=== PATIENT | male | born 1945 | race Hispanic/Latino ===

== ENCOUNTER 2020-06-27 05:56 | Day surgery (SDC) | payer OTHER ==
[2020-06-23 15:17] LABS: APPEARANCE,URINE Cloudy (CLEAR); BILIRUBIN,URINE Moderate (NEGATIVE); COLOR,URINE Dark Yellow (YELLOW); GLUCOSE, URINE (UA) Negative (NEGATIVE); KETONES,URINE Trace mg/dL (NEGATIVE); LEUKOCYTE ESTERASE ,URINE Small (NEGATIVE); NITRATE,URINE Negative (NEGATIVE); OCCULT BLOOD,URINE Negative (NEGATIVE); PROTEIN,URINE 300 mg/dL (NEGATIVE)
[2020-06-23 15:18] LABS: BASOPHILS % (AUTO) 0.9 % (0.0-5.0); EOSINOPHILS % (AUTO) 4.7 % (0.0-8.0); HEMATOCRIT 33.2 % (42-54); LYMPHOCYTES % (AUTO) 31.7 % (21.0-51.0); MEAN CORPUSCULAR HEMOGLOBIN 30.7 pg (27.0-33.0); MEAN CORPUSCULAR HGB CONC 32.5 g/dL (32.0-36.0); MEAN CORPUSCULAR VOLUME 94.3 fL (79-99); NEUTROPHILS % (AUTO) 53.4 % (40.0-77.0); PLATELET COUNT (AUTO) 291 K/uL (130-400); RED BLOOD CELL COUNT(AUTO) 3.52 MIL/uL (4.50-6.20); WHITE BLOOD COUNT (AUTO) 6.4 K/uL (4.8-10.8)
[2020-06-23 15:28] LABS: BACTERIA,URINE Few /HPF (None Seen); MUCUS,URINE Few LPF (None Seen); SQUAMOUS EPITHELIAL CELL,UR Few /HPF (0-2)
[2020-06-23 15:29] LABS: AMORPHOUS SEDIMENT,UR Moderate /LPF (None Seen)
[2020-06-23 15:30] LABS: CREATININE 1.1 mg/dL (0.5-1.5); POTASSIUM 5.8 mmol/L (3.5-5.1)
[2020-06-23 15:33] LABS: PROTHROMBIN TIME 10.9 SEC (9.6-11.6)
[2020-06-23 15:34] LABS: PARTIAL THROMBOPLASTIN TIME 28.5 SEC (26.3-35.5)
[2020-06-24 11:05] VITALS: BP 114/54
[~2020-06-27] VITALS: Ht 162.6 cm; Wt 60.3 kg
[2020-06-27] VITALS (11 sets, daily range): BP systolic 103–156; BP diastolic 44–63
[~2020-06-27 05:56] MED LIST: ASPI-556 PO; ATOR10 PO; CARV6.25 PO; CLOP75TA32 PO; METF-446 PO; SACU1TAB PO
[2020-06-27] MEDS ORDERED: SODIUM CHLORIDE 0.9% 1000ML 1,000 ML IV ONE (06:44)
[2020-06-27] MEDS ORDERED: HEPARIN SODIUM 1000UNIT/ML 10ML VIAL ONE (07:13)
[2020-06-27] MEDS ORDERED: IOHEXOL 350 MG/ML 100ML INFUS..BTL IV ONE ×2 (07:13→07:17)
[2020-06-27] MEDS ORDERED: NITROGLYCERIN 2 MG/VIAL VIAL IV ONE (07:13)
[2020-06-27] MEDS ORDERED: SODIUM BICARB 50MEQ 50ML VIAL 0 ML ONE (07:13)
[2020-06-27] MEDS ORDERED: FENTANYL CITRATE PF 50 MCG/1 ML 2ML VIAL ONE (07:14)
[2020-06-27] MEDS ORDERED: LIDOCAINE HCL 2% 20ML ONE (07:14)
[2020-06-27] MEDS ORDERED: MIDAZOLAM HCL 1 MG/ML 2ML VIAL ONE (07:14)
[2020-06-27] MEDS ORDERED: GLUCAGON 1MG KIT 1 MG ML IM PRN (10:45)
[2020-06-27] MEDS ORDERED: DEXTROSE 50%-WATER 50 ML DISP.SYRIN IV PRN (10:45)
[2020-06-27] MEDS ORDERED: SODIUM CHLORIDE 0.9% 1000ML 1,000 ML IV SCH (10:45)
== END 2020-06-27 15:50 | disposition home or self-care (01) ==
LOC: DAH 05:56
PROVIDERS: ATTEND Internal Medicine Cardiovascular Disease
DX: I34.0 Nonrheumatic mitral (valve) insufficiency (principal); I44.7 Left bundle-branch block, unspecified; E11.9 Type 2 diabetes mellitus without complications; I10 Essential (primary) hypertension; E78.5 Hyperlipidemia, unspecified; Z79.84 Long term (current) use of oral hypoglycemic drugs; Z79.01 Long term (current) use of anticoagulants; Z79.82 Long term (current) use of aspirin; Z79.899 Other long term (current) drug therapy
CPT/HCPCS: 36415 ×2; 71045; 80048; 81001; 82948 ×2; 84132; 85025; 85610; 85730; 93005; 93460; A4215; A4221; A4222; A4223; A4606; A4663; C1760; C1769; C1894 ×3; J1644; J2250; J3010; J3490 ×2; J7030; Q9965 ×3; Q9967 ×2; 96360; 96361; 99156; 99157